=== PATIENT | male | born 1950 | race Caucasian/White ===

== ENCOUNTER 2016-07-07 11:01 | Emergency (ER) | payer MEDICARE ==
[~2016-07-07] VITALS: Ht 180.3 cm; Wt 72.7 kg
[~2016-07-07 11:01] MED LIST: ALLOPURINOL300 MG PO; ALPRAZOLAM1 MG PO; BUPROPION HCL150 M1 PO; CEPHALEXIN500 M1 PO; COLCHICINE0.6 MG PO; COLCRYS0.6 MG PO; INDOMETHACIN PO; LEVOTHYROXINE0.05 M1 PO; LORTAB 7.5/5001 TAB PO; METRONIDAZOLE500 MG PO; MONODOX100 PO; NO HOME MEDICATIONS; NORCO 325 MG-51 TAB PO; NORCO 325 MG-7.1 TAB PO; SEPTRA DS 8001 TAB PO; ULTRAM 50MG TAB50 MG PO; ZYLOPRIM 100MG100 MG PO
[2016-07-07 11:02] VITALS: BP 134/80; PULSE 92; TEMP 98.4
[2016-07-07 11:54] LABS: BASO # 0.1 (0.0-0.2); BASO % 0.8 % (0.0-2.0); EOS % 0.3 % (0-4.0); GRAN # 4.8 (1.4-6.5); GRAN % 65.7 % (42.2-75.2); HEMATOCRIT 43.9 % (42.0-52.0); LYMPH # 1.3 (1.2-3.4); LYMPH % 17.7 % (20.0-51.0); MEAN CELL VOLUME 101 fl (80.0-100.0); MEAN CORPUSCULAR HEMOGLOBIN 37 pg (27.0-31.0); MEAN CORPUSCULAR HGB CONC 36 g/dl (33.0-37.0); MEAN PLATELET VOLUME 10.7 fl (7.4-10.4); MONO # 1.1 (0.1-0.6); MONO % 15.2 % (1.7-9.3); PLATELET COUNT 209 K/mm3 (130-400); RED BLOOD COUNT 4.36 M/mm3 (4.20-5.60); REDCELL DISTRIBUTION WIDTH-CV 12.6 % (11.5-14.5); WHITE BLOOD COUNT 7.3 K/mm3 (4.8-10.8)
[2016-07-07 12:00] LABS: ADJUSTED CALCIUM 9.4 mg/dL (8.4-10.2); ALBUMIN 4.2 gm/dL (3.5-5.0); BILIRUBIN,TOTAL 1.5 mg/dL (0.0-1.0); CALCIUM 9.6 mg/dL (8.4-10.2); CREATININE, serum 0.76 mg/dL (0.66-1.25); POTASSIUM 3.8 mmol/L (3.4-5.0); TOTAL PROTEIN 7.7 gm/dL (6.4-8.2); URIC ACID 6.1 mg/dL (3.5-8.5)
[2016-07-07 12:06] LABS: C-REACTIVE PROTEIN 8.6 mg/dL (0.0-0.9)
[2016-07-07 12:07] LABS: ERYTHROCYTE SEDIMENTATION RATE 28 mm/hr (0-30)
[2016-07-07 13:31] LABS: SYNOVIAL FL. MONONUCLEAR 29.7 % (0-75); SYNOVIAL FL. POLYMORPHONUCLEAR 70.3 % (0-25); SYNOVIAL FLUID WBC 8591 /mm3 (200-600)
[2016-07-07 13:34] LABS: SYNOVIAL FLUID APPEARANCE HAZY; SYNOVIAL FLUID COLOR YELLOW
[2016-07-07] MEDS ORDERED: PREDNISONE10 MG PO (14:38)
[2016-07-07] MEDS ORDERED: NORCO 325 MG-51 TAB PO (14:38)
[2016-07-09 12:03] LABS: CRYSTAL NUMBER SEEN Many (()); SYN APPEARANCE Cloudy (()); SYN COLOR Yellow (())
== END 2016-07-07 14:58 | disposition home or self-care (01) ==
LOC: COL.ER 11:01
PROVIDERS: Family Medicine
DX: M25.462 Effusion, left knee (principal); M19.072 Primary osteoarthritis, left ankle and foot; M17.12 Unilateral primary osteoarthritis, left knee
CPT/HCPCS: J7512

== ENCOUNTER 2016-11-03 05:46 | Emergency (ER) | payer MEDICARE ==
[~2016-11-03] VITALS: Ht 180.3 cm; Wt 54.5 kg
[~2016-11-03 05:46] MED LIST changes: +PREDNISONE10 MG PO
[2016-11-03 05:47] VITALS: BP 118/93; PULSE 80; TEMP 98.3
== END 2016-11-03 08:52 | disposition home or self-care (01) ==
LOC: COL.ER 05:46
DX: S09.90XA Unspecified injury of head, initial encounter (principal); S01.01XA Laceration without foreign body of scalp, initial encounter; W01.10XA Fall on same level from slipping, tripping and stumbling with subsequent striking against unspecified object, initial encounter; Y92.009 Unspecified place in unspecified non-institutional (private) residence as the place of occurrence of the external cause; Z23 Encounter for immunization; F17.210 Nicotine dependence, cigarettes, uncomplicated; R40.2362 Coma scale, best motor response, obeys commands, at arrival to emergency department; R40.2142 Coma scale, eyes open, spontaneous, at arrival to emergency department; R40.2252 Coma scale, best verbal response, oriented, at arrival to emergency department